=== PATIENT | female | born 1980 | race Caucasian/White ===

== ENCOUNTER 2016-06-12 09:00 | Emergency (ER) | payer OTHER ==
[~2016-06-12] VITALS: Ht 172.7 cm; Wt 104.3 kg
[2016-06-12] MEDS ORDERED: TRINTAB PO (09:18)
[2016-06-12] MEDS ORDERED: NS 1,000 ML IV ONE (09:45)
[2016-06-12 10:11] LABS: BASO % 0.4 % (0.0-1.0); EOS % 0.3 % (0.0-3.0); LARGE UNSTAINED CELL # 0.1 K/mm3 (0.0-0.4); LARGE UNSTAINED CELL % 1.1 % (0.0-4.0); LYMPH # 1.3 K/mm3 (1.5-4.5); LYMPH % 11.5 % (24.0-44.0); MEAN CORPUSCULAR HEMOGLOBIN 29.7 pg (27.0-33.0); MEAN CORPUSCULAR HGB CONC 33.5 g/dl (32.0-36.5); MEAN CORPUSCULAR VOLUME 88.6 fl (80.0-96.0); MONO # 0.3 K/mm3 (0.0-0.8); MONO % 2.9 % (0.0-5.0); NEUTROPHILS # 8.5 K/mm3 (1.8-7.7); NEUTROPHILS % 83.8 % (36.0-66.0); PLATELET COUNT, AUTOMATED 301 k/mm3 (150-450); RED CELL DISTRIBUTION WIDTH 11.9 % (11.5-14.5); WHITE BLOOD COUNT 10.2 K/mm3 (4.0-10.0)
[2016-06-12 10:25] LABS: CONTROL LINE HCG INT CTR LINE PRESENT
[2016-06-12 10:35] LABS: ANION GAP 9 MEQ/L (8-16); BLOOD UREA NITROGEN 13 MG/DL (7-18); CARBON DIOXIDE LEVEL 22 MEQ/L (21-32); CHLORIDE LEVEL 108 MEQ/L (98-107); CREATININE FOR GFR 0.77 MG/DL (0.55-1.02); GLOMERULAR FILTRATION RATE > 60.0 (>60); GLUCOSE, FASTING 91 MG/DL (70-105); MAGNESIUM LEVEL 1.9 MG/DL (1.8-2.4); POTASSIUM SERUM 4.3 MEQ/L (3.5-5.1); SODIUM LEVEL 139 MEQ/L (136-145)
[2016-06-12 11:04] VITALS: O2SAT 99
[2016-06-12] MEDS ORDERED: ZOFR4TAB3 PO (11:30)
[2016-06-12 11:42] VITALS: BP 140/70
--- NOTE | 2016-06-13 08:20 | ECGEPIP ---
Stationary ECG Study [facility] - ED Test Date: 2016-06-12 Pat Name: [facility] Department: Room: - Gender: F Investment Accountant: rn : 1980 Requested By: Jessie Corral Order Number: [id number] Reading MD: Jessie Corral Measurements Intervals [place] Rate: 91 P: 64 MD: 139 QRS: 14 QRSD: 88 T: 6 QT: 330 QTc: 407 Interpretive Statements SINUS RHYTHM WITH SINUS ARRHYTHMIA NO PRIOR FOR COMPARISON Electronically Signed On 06-13-2016 8:20:23 EDT by Jessie Corral
== END 2016-06-12 11:43 | disposition home or self-care (01) ==
LOC: M ED 10:07
DX: R55 Syncope and collapse (principal); Z82.49 Family history of ischemic heart disease and other diseases of the circulatory system; Z79.3 Long term (current) use of hormonal contraceptives; Z88.1 Allergy status to other antibiotic agents; Z88.2 Allergy status to sulfonamides